=== PATIENT | female | born 1940 ===

== ENCOUNTER → 2016-10-03 | Outpatient (CLI) | payer MEDICARE, BC ==
[~2016-10-03] MED LIST: ACTOS 15 MG15 MG PO; ALDACTONE25 MG PO; AMOXICILLIN500 MG PO; ASCORBIC ACID500 MG PO; ASPIRIN325 MG PO; ATORVASTATIN CA40 MG PO; CALCIUM CARBON600 MG PO; COREG12.5 MG PO; COZAAR50 MG PO; DICLOXACILLIN500 MG PO; FISH OIL1000 MG PO; FUROSEMIDE20 MG PO; GLUCOPHAGE1000 MG PO; GLYBURIDE5 MG PO; IBUPROFEN200 MG PO; LASIX40 MG PO; LEVEMIR FL100 UNIT/1 SUB-Q; NORVASC5 MG PO; PEPTO BISMOL LIQ1 ML PO; POTASSIUM GLUCO99 MG PO; THERA-VITE W/ B1 TAB PO; ZINC50 M1 PO; ZOFRAN4 MG PO
== END | disposition disaster alternative care site (69) ==
LOC: LGSMG 09:42
DX: I10 Essential (primary) hypertension (principal)

== ENCOUNTER → 2017-02-28 | Outpatient (CLI) | payer MEDICARE, BC ==
[2017-02-28 17:13] LABS: BASOPHIL % 0.4 %; EOSINOPHIL # 0.1 K/uL (0.0-0.5); EOSINOPHIL % 0.7 %; HEMATOCRIT 37.7 % (33.0-46.0); HEMOGLOBIN 12.6 g/dL (10.0-15.0); IMMATURE GRANULOCYTE % 0.2 %; LYMPHOCYTE # 1.3 K/uL (0.8-4.0); LYMPHOCYTE % 15.3 %; MCH 29.7 pg (27.0-34.0); MCHC 33.4 gm/dL (32.0-36.5); MCV 88.9 fl (83.0-98.0); MONOCYTE # 0.6 K/uL (0.0-1.0); MONOCYTE % 6.9 %; MPV 9.9 fl (9.4-12.4); NEUTROPHIL # (ANC) 6.4 K/uL (1.8-7.8); NEUTROPHIL % 76.5 %; NRBC % 0 /100WBC (0-0.00); PLATELET COUNT 314 K/uL (150-450); RBC 4.24 M/uL (3.50-5.50); RDW-CV 14.2 % (11.9-14.6); WBC 8.4 K/uL (4.0-11.0)
[2017-02-28 17:28] LABS: ALBUMIN 3.7 gm/dL (3.5-5.0); ANION GAP 11.7 (10.0-19.0); CALCIUM 10.1 mg/dL (8.5-10.5); CREATININE 1.5 mg/dL (0.5-1.1); POTASSIUM 3.7 mMol/L (3.7-5.1); TOTAL BILIRUBIN 0.5 mg/dL (0.0-1.5); TOTAL PROTEIN 7.8 g/dL (6.0-8.4)
== END ==
LOC: LNHI 16:53
PROVIDERS: Internal Medicine Cardiovascular Disease
DX: I50.22 Chronic systolic (congestive) heart failure (principal); I47.1 Supraventricular tachycardia; I10 Essential (primary) hypertension; E11.65 Type 2 diabetes mellitus with hyperglycemia